=== PATIENT | female | born 1940 | race Caucasian/White ===

== ENCOUNTER 2021-01-24 17:53 | Inpatient (IN) | payer MEDICARE, BC ==
[~2021-01-24] VITALS: Ht 160 cm; Wt 49.9 kg
--- NOTE | 2021-01-24 18:20 | NUR ---
BIB FAMILY FOR PSYCH PLACEMENT. WORSENING PARANOIA. HX DEMENTIA. PATIENT A/OX1 WITH CONFUSION. ABLE TO FOLLOW COMMANDS. PATIENT ASSISTED TO BED.
--- NOTE | 2021-01-24 18:26 | NUR ---
PATIENT ABLE TO PROVIDE A URINE SAMPLE.
--- NOTE | 2021-01-24 18:28 | NUR ---
BED 218 A
[2021-01-24 18:36] LABS: BASOPHILS % (AUTO) 0.4 % (0.0-2.0); EOSINOPHILS % (AUTO) 0.5 % (0.0-6.0); HEMATOCRIT 37 % (33-45); LYMPHOCYTES # (AUTO) 1.2 /CMM (0.8-4.8); LYMPHOCYTES % (AUTO) 11.2 % (20.0-44.0); MEAN CORPUSCULAR HGB CONC 33 g/dl (31.0-36.0); MEAN CORPUSCULAR VOLUME 89 fL (82-100); MONOCYTES # (AUTO) 0.7 /CMM (0.1-1.30); MONOCYTES % (AUTO) 6.4 % (2.0-12.0); NEUTROPHILS # (AUTO) 8.5 /CMM (1.8-8.9); NEUTROPHILS % (AUTO) 81.5 % (43.0-81.0); PLATELET COUNT (AUTO) 214 /CMM (150-450); RED BLOOD CELL COUNT(AUTO) 4.12 MIL/uL (4.0-5.2); WHITE BLOOD COUNT (AUTO) 10.4 K/uL (4.3-11.0)
[2021-01-24 18:37] LABS: BILIRUBIN,URINE Negative (NEGATIVE); COLOR,URINE YELLOW (YELLOW); LEUKOCYTE ESTERASE ,URINE Small (NEGATIVE); NITRITE, URINE Negative (NEGATIVE); PH,URINE 6.5 (5.0-8.0); PROTEIN,URINE Negative (NEGATIVE); UGLUCOSE Negative (NEGATIVE); UROBILINOGEN,URINE 0.2 EU/dL (0.2)
[2021-01-24 18:49] LABS: BACTERIA,URINE Rare /HPF (None Seen); MUCUS,URINE Rare /LPF (None Seen); SQUAMOUS EPITHELIAL CELL,UR 0-2 /HPF (None Seen)
--- NOTE | 2021-01-24 18:53 | NUR ---
COVID SWAB SENT. FAMILY AT BEDSIDE.
[2021-01-24 18:59] LABS: ACETAMINOPHEN 3 ug/ml (10-30); ALANINE AMINOTRANSFERASE 15 U/L (12-78); ALBUMIN 4.1 g/dL (3.4-5.0); ALCOHOL, BLOOD < 3 mg/dL (0-0); ALKALINE PHOSPHATASE 59 U/L (46-116); ASPARTATE AMINOTRANSFERASE 20 U/L (15-37); BILIRUBIN,DIRECT 0.1 mg/dL (0.0-0.2); BILIRUBIN,TOTAL 0.6 mg/dL (0.2-1.0); CALCIUM, SERUM 9.3 mg/dL (8.5-10.1); CARBON DIOXIDE 25 mmol/L (21-32); CHLORIDE 98 mmol/L (98-107); GLUCOSE 96 mg/dL (74-106); POTASSIUM 3.6 mmol/L (3.5-5.1); SODIUM SERUM 134 mmol/L (136-145); TOTAL PROTEIN, SERUM 7.5 g/dL (6.4-8.2); UREA NITROGEN, BLOOD 21 mg/dL (7-18)
--- NOTE | 2021-01-24 19:16 | NUR ---
CALLED LAB TO F/U ABOUT COVID SWAB
--- NOTE | 2021-01-24 19:19 | NUR ---
CALLED KAHLIL. SHE WILL COME HERE TO EVALUATE AFTER GOING [place] [email or web address]
[2021-01-24] MEDS ORDERED: CEPHALEXIN MONOHYDRATE 500 MG CAPSULE PO ONE ×2 (19:30→19:32)
--- NOTE | 2021-01-24 19:38 | NUR ---
CALLED LAB REGARDING COVID SWAB, WAS RECIEVED. PENDING RESULT.
[2021-01-24 20:00] LABS: THYROID STIMULATING HORMONE 4.621 uIU/mL (0.358-3.74)
--- NOTE | 2021-01-24 20:05 | NUR ---
COMMUNICATION PROFESSOR AT BEDSIDE FOR EVAL.
--- NOTE | 2021-01-24 20:17 | NUR ---
per lab, covid positive
--- NOTE | 2021-01-24 20:20 | NUR ---
called lab for pcr covid swab
[2021-01-24] MEDS ORDERED: ASPI-1169 PO (20:26)
[2021-01-24] MEDS ORDERED: OMEP20TA20 PO (20:26)
[2021-01-24] MEDS ORDERED: ARIP2TAB3 PO (20:26)
[2021-01-24] MEDS ORDERED: LEVO50TA PO (20:26)
[2021-01-24] MEDS ORDERED: ESCI5TAB PO (20:26)
--- NOTE | 2021-01-24 20:27 | NUR ---
PER FAMILY PT HAD COVID VACCINE
--- NOTE | 2021-01-24 20:35 | NUR ---
PCR SWAB COLLECTED SEND TO LAB
--- NOTE | 2021-01-24 20:50 | NUR ---
PT COVID+, CALLED NURSING SUP FOR A ISO BED, COVID PCR SENT
--- NOTE | 2021-01-24 21:19 | NUR ---
REPORT GIVEN TO ARTEMIO FRANCOIS FOR TIFFANIE.
[2021-01-24 21:45] VITALS: BP 129/77
--- NOTE | 2021-01-24 21:45 | NUR ---
RN NOTE GPS ADMISSION NOTE: RECEIVED PATIENT FROM ER/HOME. PATIENT ARRIVED AT UNIT ON 01/24/2021 2145 VIA STRETCHER WITH 2 ER STAFF, WITH SON ( ROSEMARY LAM, PSYCHIATRIST, ) AND DAUGHTER. PATIENT ADMITTED ON A 5150 HOLD FOR WORSENING PARANOIA. THE PATIENT IS INCREASINGLY PARANOID ACCUSING HER OF KEEPING HER PRISONER AND HAS BEEN REFUSING MEDICATIONS FOR A MONTH, NO REGARD FOR SAFETY AND NO VIABLE PLAN FOR SELF CARE. THE 5150 WAS REVIEWED AND THE DOCUMENTATION IN THE 5150 HOLD APPEARS TO REFLECT THE PRESENTATION OF THE PATIENT. ON FACE TO FACE ASSESSMENT, THE PATIENT IS NOTED TO BE CONFUSED, HAS BEEN SAYING SHE WANTS TO GO HOME AND ASKING WHY SHE IS IN THE HOSPITAL, AND NEEDS REDIRECTION.THE PATIENT IS CURRENTLY LYING IN BED AWAKE, HAS NO S/S OR COMPLAINTS OF PAIN, NO S/S OF APPARENT DISTRESS, BREATHING IS UNLABORED WITH EQUAL RISE AND FALL OF THE CHEST. PATIENT IS AO X 2 ON ROOM AIR. PATIENT HAS NO NEEDS AT THIS TIME. PATIENT DENIES SUICIDAL AND/OR HOMICIDAL IDEATIONS AT THIS TIME. PATIENT ADVISED OF HER HOLD AND PATIENT RIGHTS BOOKLEY GIVEN. THE PATIENT IS UNDER THE PSYCHIATRIC CARE OF DR SCHWARTZ AND MEDICAL CARE OF DR YARBROUGH. PATIENT BELONGINGS WERE INVENTORIES AND CHECKED FOR CONTRABAND. PATIENT SKIN ASSESSMENT COMPLETED. PATIENT ORIENTATED TO ROOM, FLOOR, AND STAFF WITH ALLL QUESTIONS ANSWERED. PATIENT EDUCATED ON THE USE OF THE CALL GEORGE, SIDE RAILS ARE UP X 2 FOR SAFETY, BED IS LOCKED, AND LOW, AND WILL CONTINUE TO MONITOR THIS PATIENT Q15 MINUTES WITH THE HELP OF STAFF TO MAINTAIN SAFETY.
[2021-01-24] MEDS ORDERED: MAGNESIUM HYDROXIDE 30 ML UDC PO PRN (22:30)
[2021-01-24] MEDS ORDERED: MAG HYDROX/AL HYDROX/SIMETH 30 ML UDC PO PRN (22:30)
[2021-01-24] MEDS ORDERED: ONDANSETRON HCL 4 MG/5 ML SOLUTION PO ONE (22:30)
[2021-01-24] MEDS ORDERED: ACETAMINOPHEN 325 MG TABLET PO PRN (22:30)
[2021-01-24] MEDS ORDERED: BLOOD SUGAR DIAGNOSTIC 1 EACH STRIP IN ONE (22:30)
[2021-01-24] MEDS: LORAZEPAM 0.5 MG TABLET PO PRN (22:33)
[2021-01-25] MEDS: PANTOPRAZOLE 40 MG TABLET.DR PO SCH (08:38)
[2021-01-25] MEDS: ASPIRIN 81 MG TAB.CHEW PO SCH (08:38)
[2021-01-25] MEDS: LEVOTHYROXINE SODIUM 50 MCG TABLET PO SCH (08:38)
[2021-01-25 09:50] VITALS: BP 178/68
--- NOTE | 2021-01-25 10:59 | NUR ---
wide awake ,alert, appropriate. Knows she is in the hospital but did not know why there is a sitter around her. the patient was explained, her status right now 51/50, and awaiting the psy eval. appetite for breakfast, 75%, independent seen by PT, able to walk, in light of her PCR pending, did not ambulate in the hallway. Sitting in chair, dozing off intermittently. Son called , her condition updated.
[2021-01-25 14:59] VITALS: BP 125/72
[2021-01-25] MEDS: ESCITALOPRAM OXALATE (10 MG) 10 MG TABLET PO SCH (16:18)
[2021-01-25] MEDS: ARIPIPRAZOLE 2 MG TABLET PO SCH (16:18)
[2021-01-25 16:20] VITALS: BP 137/64
--- NOTE | 2021-01-25 16:22 | NUR ---
psychiatrist came in, and new orders written. just now woke self up, and took all po meds, Abilify, and Lexapro for now, appropriate and compliant with care
--- NOTE | 2021-01-25 19:00 | NUR ---
GPS OVERFLOW RN NOTE RECEIVED PATIENT AWAKE AND IN BED, SITTER AT BEDSIDE, NO S/S OR COMPLAINTS OF PAIN AT THIS TIME. PATIENT IS DISPLAYING NO S/S OF APPARENT DISTRESS AT THIS TIME. BREATHING IS EVEN AND UNLABORED WITH EQUAL RISE AND FALL OF THE CHEST. PATIENT IS AO X 2, ON ROOM AIR WITH SPO2 96%. PATIENT IS COMPLIANT WITH MEDICATION, RESPONDING TO INTERNAL STIMULI, AND COOPERATIVE. PATIENT DENIES SUICIDAL AND HOMICIDAL ISEATIONS AT THIS TIME. PATIENT IS AMBULATORY AND ASSISTED BY SITTER WITH TOILETING. EDUCATED PATIENT ON THE USE OF THE CALL LIGHT. PATIENT SIDE RAILS UP X 2 FOR SAFETY, BED IS LOCKED AND LOW. WILL CONTINUE TO MONITOR Q15 MIN WITH THE HELP OF SITTER TO MAINTAIN SAFETY.
[2021-01-25 20:00] VITALS: BP 133/92
[2021-01-25] MEDS: MIRTAZAPINE 15 MG TABLET PO SCH (21:01)
[2021-01-26 04:00] VITALS: BP 133/62
[2021-01-26 06:08] LABS: BASOPHILS % (AUTO) 0.5 % (0.0-2.0); EOSINOPHILS % (AUTO) 2.8 % (0.0-6.0); HEMATOCRIT 39 % (33-45); HEMOGLOBIN 12.8 g/dL (11.5-14.8); LYMPHOCYTES # (AUTO) 1.2 /CMM (0.8-4.8); LYMPHOCYTES % (AUTO) 13.8 % (20.0-44.0); MEAN CORPUSCULAR HGB CONC 33 g/dl (31.0-36.0); MEAN CORPUSCULAR VOLUME 89 fL (82-100); MONOCYTES # (AUTO) 0.6 /CMM (0.1-1.30); MONOCYTES % (AUTO) 6.8 % (2.0-12.0); NEUTROPHILS # (AUTO) 6.6 /CMM (1.8-8.9); NEUTROPHILS % (AUTO) 76.1 % (43.0-81.0); PLATELET COUNT (AUTO) 200 /CMM (150-450); RED BLOOD CELL COUNT(AUTO) 4.37 MIL/uL (4.0-5.2); WHITE BLOOD COUNT (AUTO) 8.7 K/uL (4.3-11.0)
[2021-01-26 06:32] LABS: CALCIUM, SERUM 9.1 mg/dL (8.5-10.1); POTASSIUM 3.4 mmol/L (3.5-5.1)
--- NOTE | 2021-01-26 07:05 | NUR ---
GPS OVERFLOW RN NOTES RECEIVED PT IN BED, AWAKE. A/O X1-2. SITTER AT BEDSIDE. STABLE ON ROOM AIR, SPO2 98%. NO COMPLAINTS OF PAIN AT THIS TIME. COOPERATIVE AND COMPLIANT WITH MEDICATION. DENIES SUICIDAL AND HOMICIDAL IDEATIONS AT THIS TIME. AMBULATORY WITH ASSIST BY SITTER. SAFETY MEASURES IN PLACE. CALL LIGHT WITHIN REACH. BED LOCKED AND IN LOWEST POSITION WITH SIDE RAILS UP X2. WILL CONTINUE TO MONITOR.
[2021-01-26] MEDS: ASPIRIN 81 MG TAB.CHEW PO SCH (08:22)
[2021-01-26] MEDS: PANTOPRAZOLE 40 MG TABLET.DR PO SCH (08:22)
[2021-01-26] MEDS: ESCITALOPRAM OXALATE (10 MG) 10 MG TABLET PO SCH (08:23)
[2021-01-26] MEDS: LEVOTHYROXINE SODIUM 50 MCG TABLET PO SCH (08:23)
[2021-01-26] MEDS ORDERED: POTASSIUM CHLORIDE 20 MEQ TAB.PRT.SR PO SCH (12:00)
[2021-01-26] MEDS: ARIPIPRAZOLE 2 MG TABLET PO SCH (16:52)
--- NOTE | 2021-01-26 18:33 | NUR ---
GPS OVERFLOW RN NOTES NO SIGNIFICANT CHANGES THROUGHOUT THE SHIFT. PT RESTING IN BED, AWAKE. A/O X1-2. SITTER AT BEDSIDE. STABLE ON ROOM AIR, SPO2 98%. NO COMPLAINTS OF PAIN AT THIS TIME. COOPERATIVE. DENIES SUICIDAL AND HOMICIDAL IDEATIONS AT THIS TIME. AMBULATORY WITH ASSIST BY SITTER. ALL DUE MEDS GIVEN. NEEDS ATTENDED. KEPT CLEAN AND DRY. SAFETY MEASURES STILL IN PLACE. CALL LIGHT WITHIN REACH. BED LOCKED AND IN LOWEST POSITION WITH SIDE RAILS UP X2. WILL ENDORSE TO NIGHT RN FOR TIFFANIE.
[2021-01-26 20:00] VITALS: BP 154/79
--- NOTE | 2021-01-26 20:15 | NUR ---
RN OPENING NOTES GPS OVERFLOW RECD PT IN BED. PT IS A/O X2. CONFUSED, FORGETFUL. PT COOPERATIVE AND RESPONDS TO REORIENTATION. PT DENIES SUICIDAL AND/OR HOMICIDAL IDEATIONS AT THIS TIME. PT IS ON ROOM AIR NO S/S OF SOB, NO DISTRESS NOTED. PT DENIES PAIN. ALL NEEDS ATTENDED. APPLICABLE ISOLATION PRECAUTIONS IN PLACE. SAFETY MEASURES IN PLACE. HOB ELEVATED SIDE RAILS UP X2 BED LOCKED IN LOWEST POSITION BED ALARM TUBULAR RIVETER LIGHT WITHIN REACH WILL CONT TO MONITOR CLOSELY THROUGHOUT SHIFT, AND MAINTAIN SAFETY.
[2021-01-26] MEDS: MIRTAZAPINE 15 MG TABLET PO SCH (20:48)
[2021-01-26] MEDS: LORAZEPAM 0.5 MG TABLET PO PRN ×2 (23:22→23:37)
[2021-01-26] MEDS: TEMAZEPAM 7.5 MG CAPSULE PO PRN (23:36)
--- NOTE | 2021-01-27 | NUR ---
RN NOTE PT IS GETTING AGITATED, REFUSES TO STAY IN BED. IS HAVING PARANOID DELUSIONS, BELIEVES PEOPLE WANT TO HURT HER/KILL HER. PT ATTEMPTING TO LEAVE, ATTEMPTED TO EXIT VIA THE WINDOW IN HER ROOM.PT IS NOT RESPONSIVE TO REORIENTATION TO HOSPITAL. PT REFUSES TO BELIEVE SHE IS IN HOSPITAL. VERBALIZE SHE WANTS TO GO HOME, PT IS ON 5150 HOLD. ADMINISTERED PRN ATIVAN AND RESTORIL ORDERED. NOTIFIED SON BIIB OF SITUATION. CONTINUOUS MONITORING IN PLACE.
--- NOTE | 2021-01-27 00:15 | NUR ---
RN NOTE PT REFUSING MIDNIGHT VITALS, PT CURRENTLY SITTING IN CHAIR. LESS AGITATED THAN BEFORE. EXPLAINED IMPORTANCE, RISKS AND BENEFITS X2, PT STILL REFUSED. WILL CONT TO MONITOR CLOSELY FOR CHANGE OF CONDITION.
--- NOTE | 2021-01-27 00:32 | NUR ---
RN NOTE PT CURRENTLY IN BED, RESTING INTERMITTENTLY SLEEPING. NO S/S OF DISTRESS NOTED. WILL CONT TO MONITOR CLOSELY.
--- NOTE | 2021-01-27 01:07 | NUR ---
RN NOTE SON BIBI PHONE NUMBER ALTERNATIVE PHONE NUMBER [phone]
[2021-01-27 04:00] VITALS: BP 149/71
--- NOTE | 2021-01-27 07:08 | NUR ---
RN CLOSING NOTES ALL NEEDS ATTENDED. NO SIGNIFICANT CHANGES. PT STILL ON ROOM AIR NO DISTRESS NOTED NO SOB. ON TELE MONITOR, PRESENTS WITH HR 115. BED BATH DONE, NOURISHMENT PROVIDED. STILL REMAINS ON RESTRAINTS. ALL SAFETY MEASURES IN PLACE. ALL DUE MEDS GIVEN. HOB ELEVATED SIDE RAILS UP X2 BED LOCKED IN LOWEST POSITION BED ALARM ON WILL ENDORSE TO DAY SHIFT FOR CONTINUATION OF CARE.
--- NOTE | 2021-01-27 07:30 | NUR ---
RN OPENING NOTES- GPS OVERFLOW PT SITTING UP IN CHAIR, A/O x 1. CONFUSED AND FORGETFUL. PT IS COOPERATIVE AND RESPONDS TO REORIENTATION. PT DENIES SUICIDAL AND/OR HOMICIDAL IDEATIONS AT THIS TIME. PT BREATHING ON ROOM AIR WITH NO S/S OF SOB OR RESP DISTRESS NOTED. PT DENIES PAIN. ALL NEEDS ATTENDED TO. PT CURRENTLY COVID PCR PENDING, APPROPRIATE ISO MEASURES IN PLACE. ALL SAFETY MEASURES IN PLACE. WORK STATION BESIDE PT ROOM FOR CLOSE MONITORING
[2021-01-27 08:00] VITALS: BP 89/55
[2021-01-27] MEDS: PANTOPRAZOLE 40 MG TABLET.DR PO SCH (09:02)
[2021-01-27] MEDS: ASPIRIN 81 MG TAB.CHEW PO SCH (09:02)
[2021-01-27] MEDS: ESCITALOPRAM OXALATE (10 MG) 10 MG TABLET PO SCH (09:02)
[2021-01-27] MEDS: LEVOTHYROXINE SODIUM 50 MCG TABLET PO SCH (09:02)
--- NOTE | 2021-01-27 09:30 | NUR ---
RN NOTE PT TRANSFERRED TO GPS FOR FURTHER EVALUATION VIA WHEELCHAIR IN STABLE CONDITION. ALL PT BELONGINGS WITH PT. PT REPORT GIVEN TO JENNIFER FRANCOIS TIFFANIE
--- NOTE | 2021-01-27 10:02 | NUR ---
GPS RN NOTES RECEIVED TRANSFER FROM [facility]. PATIENT MEDICALLY STABLE. BP ELEVATED AT 181/79 HR 66 WILL RECHECK IN 30 MIN. PER MEEN[facility] NURSE PATIENT WAS HYPOTENSIVE 89/56
--- NOTE | 2021-01-27 10:48 | NUR ---
GPS RN NOTES RECHECKED BP. BP GOING DOWN 150/61 HR 66 WILL CONTINUE TO MONITOR PATIENT.
--- NOTE | 2021-01-27 14:33 | NUR ---
Initial Discharge plan: The pt. lives at home [[address] [facility] [address]; [phone]] with . Pt. stated she would like to return there once ready for discharge. SW has been unsuccessful at reaching her son, Alfred Oconnor [phone] to discuss D/C plan. MELVIN will continue to collaborate with IDT to ensure safe & appropriate D/C plan.
--- NOTE | 2021-01-27 14:33 | NUR ---
Point of Contact: MELVIN called the pt.s son, Alfred Oconnor [phone] to gather collateral information. Call went to [employer] and MELVIN left call back number.
[2021-01-27 15:54] VITALS: BP 161/85
--- NOTE | 2021-01-27 16:17 | NUR ---
GPS RN NOTES PER PHYS THER PATIENT WITH BP OF 161/[address] CASTILLO NOTIFIED. PER MD ORDER PRN CLONIDINE 0.1 Q6HRS SBP >150 RE-CHECKED PATIENTS BP MYSELF. ASKED PATIENT NOT TO MOVE OR TALK. BP 148/71 HR 74 WILL CONTINUE TO MONITOR
[2021-01-27] MEDS: ARIPIPRAZOLE 2 MG TABLET PO SCH (16:31)
[2021-01-27] MEDS: CLONIDINE HCL 0.1 MG TABLET PO PRN (17:35)
--- NOTE | 2021-01-27 17:40 | NUR ---
GPS RN NOTES PATIENT WITH BP OF 166/85 PRN CATAPRES ADMINISTERED PER MD ORDER FOR SBP >150 WILL CONTINUE TO MONITOR
[2021-01-27] MEDS: RIVASTIGMINE TARTRATE 1.5 MG CAPSULE PO SCH (18:27)
[2021-01-27 20:00] VITALS: BP 139/59
--- NOTE | 2021-01-27 21:30 | NUR ---
OMNICELL SYSTEM IS DOWN, UNABLE TO PULL OUT MEDICATIONS. CHAIN OF COMMAND INITIATED. NURSING DRAWER HARDWARE WORKER NOTIFIED. OMNICELL 24HOUR HELP DESK NOTIFIED, AWAITING DISPATCH TARE WEIGHER.
[2021-01-27] MEDS: MIRTAZAPINE 15 MG TABLET PO SCH (23:54)
--- NOTE | 2021-01-28 00:35 | NUR ---
pharmacy, [facility] notified regarding lack of access for medications, all medications given
[2021-01-28 08:00] VITALS: BP 126/64
[2021-01-28] MEDS: ESCITALOPRAM OXALATE (10 MG) 10 MG TABLET PO SCH (09:00)
[2021-01-28] MEDS: RIVASTIGMINE TARTRATE 1.5 MG CAPSULE PO SCH ×2 (09:00→17:00)
[2021-01-28] MEDS: ASPIRIN 81 MG TAB.CHEW PO SCH (09:00)
[2021-01-28] MEDS: PANTOPRAZOLE 40 MG TABLET.DR PO SCH (09:01)
[2021-01-28] MEDS: LEVOTHYROXINE SODIUM 50 MCG TABLET PO SCH (09:01)
--- NOTE | 2021-01-28 11:13 | NUR ---
Point of Contact: MELVIN called the pts son, Alfred Oconnor ([phone]), and left a voicemail stating that she is aware that the pt can return to the home and will work on arranging home health.
--- NOTE | 2021-01-28 11:22 | NUR ---
SS Note: MELVIN received call back from pt.'s son, Alfred Oconnor [phone]. Per Alfred, he is agreeable to pt. discharging back home [[address] [facility] [address]; [phone]] with if pt. is back to baseline and not exhibiting severe paranoia and aggression. Noted. MELVIN provided MELVIN Thompson's contact number as she will follow up with D/c PLANNING. MELVIN relayed D/C plan to Donna CHARLES. SS to continue collaborating with IDT to ensure safe & appropriate D/C plan.
[2021-01-28] MEDS: LORAZEPAM 0.5 MG TABLET PO PRN (16:03)
--- NOTE | 2021-01-28 16:03 | NUR ---
attempted ativan as very paranoid,pt. refused,call out to pt's son,states to call him back in one hr.pt. not happy.
[2021-01-28] MEDS: ARIPIPRAZOLE 2 MG TABLET PO SCH (17:00)
--- NOTE | 2021-01-28 18:00 | NUR ---
REFUSED KEELEY. MEDS VERY PARANOID.
[2021-01-28 20:00] VITALS: BP 159/81
[2021-01-28] MEDS: MIRTAZAPINE 15 MG TABLET PO SCH (21:00)
[2021-01-28] MEDS: CLONIDINE HCL 0.1 MG TABLET PO PRN (22:01)
--- NOTE | 2021-01-28 22:02 | NUR ---
Resident B/P 159/81 pulse 86. Patient refused PRN.PO medication catapres. Educated on risk of not taking medication.Offered 3 times.Refused.
--- NOTE | 2021-01-28 22:40 | NUR ---
Recieved call from pharmacy regarding Consent form needed for Abilify 2mg. Will endorse to day shift to obtain. Dosage due at 1700.
[2021-01-29] MEDS: PANTOPRAZOLE 40 MG TABLET.DR PO SCH (07:30)
[2021-01-29 08:00] VITALS: BP 164/69
[2021-01-29] MEDS: LEVOTHYROXINE SODIUM 50 MCG TABLET PO SCH (09:00)
[2021-01-29] MEDS: ESCITALOPRAM OXALATE (10 MG) 10 MG TABLET PO SCH (09:00)
[2021-01-29] MEDS: ASPIRIN 81 MG TAB.CHEW PO SCH (09:00)
[2021-01-29] MEDS: RIVASTIGMINE TARTRATE 1.5 MG CAPSULE PO SCH ×2 (09:00→17:05)
--- NOTE | 2021-01-29 10:30 | NUR ---
Point of Contact: MELVIN called the pts son, Alfred Oconnor ([phone]), and left a voicemail stating that the SW heard his message about needing a caregiver for his mother for when she is discharged. MELVIN stated that she will gladly assist.
[2021-01-29] MEDS: ARIPIPRAZOLE 2 MG TABLET PO SCH ×4 (11:00→19:49)
[2021-01-29 16:00] VITALS: BP 168/99
[2021-01-29] MEDS: CLONIDINE HCL 0.1 MG TABLET PO PRN (17:06)
[2021-01-29] MEDS: TEMAZEPAM 7.5 MG CAPSULE PO PRN (22:17)
[2021-01-30 08:00] VITALS: BP 146/74
[2021-01-30] MEDS: PANTOPRAZOLE 40 MG TABLET.DR PO SCH (08:20)
--- NOTE | 2021-01-30 08:20 | NUR ---
RN-CO: MEDS WAS NOT ABLE TO SCAN , 3 SCANNERS ARE NOT WORKING.
[2021-01-30] MEDS: ASPIRIN 81 MG TAB.CHEW PO SCH (08:23)
[2021-01-30] MEDS: LEVOTHYROXINE SODIUM 50 MCG TABLET PO SCH (08:23)
--- NOTE | 2021-01-30 13:35 | NUR ---
Point of Contact: MELVIN called the pts son, Alfred Oconnor ([phone]), and left a voicemail stating that she received his message and that the pt is now compliant with her abilify but there is still no discharge date.
[2021-01-30 16:00] VITALS: BP 134/87
[2021-01-30] MEDS: ARIPIPRAZOLE 2 MG TABLET PO SCH (18:20)
--- NOTE | 2021-01-30 19:30 | NUR ---
GPS RN NOTE, RECEIVED PATIENT AWAKE AND IN BED, NO S/S OR COMPLAINTS OF PAIN AT THIS TIME. PATIENT IS DISPLAYING NO S/S OF APPARENT DISTRESS AT THIS TIME. PATIENT BREATHING IS UNLABORED WITH EQUAL RISE AND FALL OF THE CHEST. PATIENT IS ALERT AND ORIENTED X 1 ON ROOM AIR WITH A SPO2 98%. PATIENT IS COMPLIANT WITH MEDICATIONS, ANXIOUS AT TIMES, TEARFUL, AND IS COOPERATIVE. PATIENT DENIES SUICIDAL AND HOMICIDAL IDEATIONS AT THIS TIME. PATIENT ASSISTED WITH TURNING AND REPOSITIONING Q2HR AND PRN FOR COMFORT AND CIRCULATION. PATIENT HAS NO NEEDS AT THIS TIME. PATIENT EDUCATED ON THE USE OF THE CALL LIGHT. PATIENT BED SIDE RAILS UP X 2 FOR SAFETY. PATIENT BED IS LOCKED, LOW, WITH BED ALARM ON. WILL CONTINUE TO MONITOR THIS PATIENT Q15 MINUTES WITH THE HELP OF STAFF TO MAINTAIN SAFETY.
[2021-01-30 19:41] VITALS: BP 161/72
[2021-01-30] MEDS ORDERED: MIRTAZAPINE 15 MG TABLET PO SCH (21:00)
[2021-01-31] MEDS: TEMAZEPAM 7.5 MG CAPSULE PO PRN (01:23)
--- NOTE | 2021-01-31 01:23 | NUR ---
GPS RN NOTE, PATIENT HAS A COMPLAINT OF NOT BEING ABLE TO SLEEP. PATIENT VITAL SIGNS ARE STABLE. GAVE RESTORIL 7.5MG PO HS PRN ORDERED. WILL REASSESS FOR INSOMNIA AND I WILL CONTINUE TO MONITOR THIS PATIENT WITH THE HELP OF STAFF.
[2021-01-31 08:00] VITALS: BP 151/86
[2021-01-31] MEDS: ASPIRIN 81 MG TAB.CHEW PO SCH (08:57)
[2021-01-31] MEDS: LEVOTHYROXINE SODIUM 50 MCG TABLET PO SCH (08:57)
--- NOTE | 2021-01-31 11:42 | NUR ---
Probable Cause Hearing: Pts 5250 hold was upheld for grave disability.
[2021-01-31 16:00] VITALS: BP 157/77
--- NOTE | 2021-01-31 17:16 | NUR ---
GPS/RN PT HAD THE PANIC ATTACK AT MRI. WILL TRY THE OTHER TIME. DR TODD MADE AWARE. PT'S SON NOTIFIED WELL
[2021-01-31] MEDS: ARIPIPRAZOLE 2 MG TABLET PO SCH (18:25)
[2021-01-31 20:38] VITALS: BP 157/68
[2021-02-01] MEDS: ASPIRIN 81 MG TAB.CHEW PO SCH (09:32)
[2021-02-01] MEDS: LEVOTHYROXINE SODIUM 50 MCG TABLET PO SCH (09:32)
[2021-02-01] MEDS ORDERED: LISINOPRIL (5MG) 5 MG TABLET PO SCH (10:30)
[2021-02-01 12:26] VITALS: BP 151/90
[2021-02-01 16:00] VITALS: BP 135/75
[2021-02-01] MEDS: ARIPIPRAZOLE 2 MG TABLET PO SCH ×2 (17:48→18:59)
--- NOTE | 2021-02-01 17:48 | NUR ---
RELUCTANT TO TAKE ABILIFY,STATES SHE IS BETTER NOW,SON ON HIS WAY UP TO DISCUSS WITH HIM.
--- NOTE | 2021-02-01 18:19 | NUR ---
FAMILY IN TO VISIT.
[2021-02-01] MEDS ORDERED: ARIPIPRAZOLE 5 MG TABLET PO SCH (19:00)
--- NOTE | 2021-02-01 19:30 | NUR ---
RN OPENING NOTE PATIENT A/O X 2. SON BIBI AND DAUGHTER SHEELA WALKING AROUND THE PATIENT IN THE UNIT. PATIENT IS CALM AND COOPERATIVE. PATIENT IS CURRENTLY ON A 5250 HOLD. BREATHING EVEN AND UNLABORED, NO SIGNS OF RESPIRATORY DISTRESS. SAFETY MEASURES IN PLACE AND DISCUSSED. BED IN LOCKED AND LOWEST POSITION, SIDE RAILS UP, ENCOURAGED PATIENT TO CALL BEFORE GETTING UP. WILL MONITOR PATIENT CLOSELY.
[2021-02-01 20:17] VITALS: BP 139/69
[2021-02-01 21:10] VITALS: BP 110/59
--- NOTE | 2021-02-01 22:00 | NUR ---
OFFICE SERVICES SPECIALIST NOTE 2109: BALBINA JOYCE CALLED ME TO THE DAY/ACTIVITY ROOM AND STATES THAT PATIENT IS NOT RESPONDING. PATIENT WAS LETHARGIC AND ONLY RESPONDS TO STERNAL RUB. LOT ATTENDANT CALLED: GUI NURSING SUPERVISOR RESIDENTIAL, MARILEE RT, LAMAR RT, ED TIRE MANAGER PRESENT ALONG WITH GPS STAFF REGGIE CHARGE NURSE, THUAN RN, ARLETTE RN, JENNIFER JOYCE, BALBINA JOYCE. PATENT WAS TRANSFERRED TO HER BED, VITALS WERE: 110/59, HR 97, RR 15, TEMP 97.8, O2 SAT 99%, AND BLOOD SUGAR 97 MG/DL. UPON TRANSFERRING TO THE BED, PATIENT BECAME RESPONSIVE, STATES THAT SHE "FEELS SLEEPY". PATIENT WAS GIVEN HALF A CUP OF APPLE JUICE. NO ITEMS OR MEDICATIONS GIVEN TO THE PATIENT FROM THE CRASH CART. CRASH CART NOT OPENED. DR. NGO NOTIFIED, CALLED BACK AND ORDERED TO TRANSFER PATIENT TO TELEMETRY, ORDERED AN ECHO, AND CT OF HEAD W/O CONTRAST. ORDERS READ BACK AND CARRIED OUT. PATIENT BROUGHT DOWN TO CT THEN PATIENT TRANSFERRED TO [place] [id number] UNDER ACLS PROTOCOL. UPON TRANSFER, PATIENT AMBULATORY, A/O X 2, AWAKE, ABLE TO MAKE NEEDS KNOWN.
--- NOTE | 2021-02-01 22:05 | NUR ---
PRESTIDIGITATOR PATIENT TRANSFERRED WITH ALL HER BELONGINGS AND ORIGINAL 5250 HOLD AND OTHER DOCUMENTS.
--- NOTE | 2021-02-01 22:45 | NUR ---
CALLED [facility] AND LEFT A MESSAGE REGARDING THE PATIENT'S TRANSFER TO MS/TELE UNIT.
--- NOTE | 2021-02-01 23:45 | NUR ---
SON BIBI CALLED BACK, AND DISCUSSED PATIENT'S STATUS AT THIS TIME AND WHAT THE SITUATION WAS. INFORMED HIM ON HOW TO REACH THE MS/TELE UNIT TO GET UPDATES AND THE NURSE THAT TOOK OVER THE CARE OF THE PATIENT.
[2021-02-02] MEDS ORDERED: ARIPIPRAZOLE 5 MG TABLET PO SCH (19:00)
== END 2021-02-01 22:25 | disposition short-term general hospital (02) | DRG 885 ==
LOC: ER 18:01 → GPS 20:03 → GPSOV1 21:06 → GPS 01-27 09:42
PROVIDERS: ADMIT Psychiatry & Neurology Psychosomatic Medicine; ATTEND Nurse Practitioner Family
DX: F25.1 Schizoaffective disorder, depressive type (principal); U07.1 COVID-19; N39.0 Urinary tract infection, site not specified; E03.9 Hypothyroidism, unspecified; F03.90 Unspecified dementia, unspecified severity, without behavioral disturbance, psychotic disturbance, mood disturbance, and anxiety; Z91.81 History of falling; Z95.0 Presence of cardiac pacemaker; K21.9 Gastro-esophageal reflux disease without esophagitis; Z79.82 Long term (current) use of aspirin; Z79.899 Other long term (current) drug therapy; Z73.6 Limitation of activities due to disability; R53.1 Weakness; R27.8 Other lack of coordination; F41.9 Anxiety disorder, unspecified
CPT/HCPCS: 36415; 70450-TC; 80048-TC; 80061-TC; 80076-TC; 81001; 83880; 84439-TC; 84443-TC; 85025-TC; 87081-TC; 87086-TC; 93307-TC; 97116-TC; 97530-TC; G0480; Q0162; U0003

== ENCOUNTER 2021-02-01 22:36 | Inpatient (IN) | payer MEDICARE, BC ==
[~2021-02-01] VITALS: Ht 165.1 cm; Wt 50.3 kg
--- NOTE | 2021-02-01 22:00 | NUR ---
RN NOTES RECEIVED PATIENT FROM GPS, S/P RAPID RESPONSE, A/OX2-, SR ON TELE MONITOR HR-85, SKIN ASSESSMENT DONE,SITTER AT BEDSIDE, NO PAIN NOTED, NO SOB, SIDERAILSUPX2, BED IN LOCKED POSITION, WILL CONTINUE TO MONITOR
--- NOTE | 2021-02-01 22:30 | NUR ---
RN NOTES PAGED DR NGO REGARDING PATIENT'S ADMISSION ORDER, WAITING TO CALL BACK
[~2021-02-01 22:36] MED LIST: ARIP2TAB3 PO; ASPI-1169 PO; ESCI5TAB PO; LEVO50TA PO; OMEP20TA20 PO
[2021-02-01 23:30] VITALS: BP 131/72
--- NOTE | 2021-02-02 01:00 | NUR ---
RN NOTES PAGED DR. NGO AGAIN FOR ADMISSION ORDER, WAITING FOR HER TO CALL BACK
[2021-02-02 01:22] VITALS: BP 131/72
[2021-02-02] MEDS ORDERED: IV 1/2NS 1000 ML 1,000 ML IV PRN (03:30)
--- NOTE | 2021-02-02 03:30 | NUR ---
RN NOTES DR. COUGHLIN CALL BACK AND GAVE AN ORDER OF 1/2 NS @ 80ML/HR, ORDER NOTED AND CARRIED OUT
[2021-02-02 04:00] VITALS: BP 113/58
[2021-02-02] MEDS ORDERED: MAGNESIUM HYDROXIDE 30 ML UDC PO PRN (04:00)
[2021-02-02] MEDS ORDERED: MAG HYDROX/AL HYDROX/SIMETH 30 ML UDC PO PRN (04:00)
[2021-02-02] MEDS ORDERED: Z GUARD REMEDY 2 OZ OINT TP PRN (04:00)
[2021-02-02] MEDS ORDERED: ACETAMINOPHEN 325 MG TABLET PO PRN (04:00)
[2021-02-02] MEDS ORDERED: ONDANSETRON HCL/PF 4 MG/2 ML VIAL IVP PRN (04:00)
--- NOTE | 2021-02-02 06:17 | NUR ---
RN NOTES PATIENT AWAKE, MORNING CARE RENDERED, , NOT IN DISTRESS, NO PAIN NOTED, CALL LIGHT WITHIN REACH, SIDERAILSUPX2, PT. NEEDS ATTENDED
--- NOTE | 2021-02-02 06:25 | NUR ---
RN CLOSING NOTE PT AWAKE IN BED COMFORTABLY AT THIS TIME,PT REMAINED STABLE THROUGHOUT SHIFT. ALL NEEDS, MEDICATIONS, AND CARE ADMINISTERED ANTICIPATED PER ORDER; PT ENCOURAGED TO REPOSITION Q2H AND PRN, 1/2 NS @ 80ML/HR RUNNING ON RWRIST G# 20. SAFETY PRECAUTIONS IN PLACE AND MAINTAINED AT ALL TIMES. SITTER AT BEDSIDE. BED IN LOWEST POSITION, HOB ELEVATED, SIDE RAILS UP X2. CALL LIGHT AND TABLE WITHIN REACH. WILL ENDORSE TO DAY SHIFT NURSE FOR TIFFANIE.
--- NOTE | 2021-02-02 07:23 | NUR ---
SALESPERSON CHILDREN'S SHOES OPENING NOTES RECEIVED PATIENT AWAKE IN BED IN NO ACUTE SIGNS OF DISTRESS. 1:1 SITTER AT BEDSIDE. A/O X1 TO NAME ONLY. VERBALLY RESPONSIVE AND CONFUSED. NO S/S OF PAIN OR ANY DISCOMFORTS OBSERVED AT THIS TIME. PT ON TELEMONITORING WITH CURRENT READING OF NSR, HR ON THE 80'S, NO C/O CARDIAC DISTRESS VOICED AT THIS TIME. IV ACCESS ON RIGHT WRIST #22G INTACT AND PATENT, IVF OF 1/2 NS @ 80ML/HR IN FUSING WELL, NO S/S OF INFILTRATION AT SITE NOTED. FALL AND SAFETY PRECAUTIONS MAINTAINED: BED IN LOWEST LOCKED POSITION, SIDE-RAILS UP X2 AND CALL LIGHT W/IN REACH. WILL CONTINUE TO MONITOR PATIENT.
[2021-02-02 08:00] VITALS: BP 132/68
[2021-02-02 08:15] LABS: BASOPHILS % (AUTO) 0.6 % (0.0-2.0); EOSINOPHILS % (AUTO) 6.5 % (0.0-6.0); HEMATOCRIT 33 % (33-45); HEMOGLOBIN 10.9 g/dL (11.5-14.8); LYMPHOCYTES # (AUTO) 1.6 K/uL (0.8-4.8); MEAN CORPUSCULAR HGB CONC 33 g/dl (31.0-36.0); MEAN CORPUSCULAR VOLUME 89 fL (82-100); MONOCYTES # (AUTO) 0.7 K/uL (0.1-1.30); MONOCYTES % (AUTO) 11.1 % (2.0-12.0); NEUTROPHILS # (AUTO) 3.7 K/uL (1.8-8.9); NEUTROPHILS % (AUTO) 57.8 % (43.0-81.0); PLATELET COUNT (AUTO) 206 K/uL (150-450); RED BLOOD CELL COUNT(AUTO) 3.72 MIL/uL (4.0-5.2); WHITE BLOOD COUNT (AUTO) 6.5 K/uL (4.3-11.0)
[2021-02-02 08:38] LABS: CALCIUM, SERUM 9.3 mg/dL (8.5-10.1); CARBON DIOXIDE 26 mmol/L (21-32); CHLORIDE 107 mmol/L (98-107); CREATININE 0.7 mg/dL (0.6-1.3); GLUCOSE 100 mg/dL (74-106); POTASSIUM 3.8 mmol/L (3.5-5.1); SODIUM SERUM 143 mmol/L (136-145); UREA NITROGEN, BLOOD 21 mg/dL (7-18)
[2021-02-02 08:51] LABS: ALANINE AMINOTRANSFERASE 20 U/L (12-78); ALBUMIN 3.4 g/dL (3.4-5.0); ALKALINE PHOSPHATASE 45 U/L (46-116); ASPARTATE AMINOTRANSFERASE 21 U/L (15-37); BILIRUBIN,TOTAL 0.4 mg/dL (0.2-1.0); TOTAL PROTEIN, SERUM 6.5 g/dL (6.4-8.2)
[2021-02-02] MEDS ORDERED: ASPIRIN 81 MG TAB.CHEW PO SCH (09:00)
[2021-02-02] MEDS ORDERED: LEVOTHYROXINE SODIUM 50 MCG TABLET PO SCH (09:00)
--- NOTE | 2021-02-02 10:25 | NUR ---
RN NOTES PATIENT SEEN BY DR SCHWARTZ THIS MORNING WITH ORDER TO GIVE PT ENSURE ONCE A DAY.
[2021-02-02] MEDS ORDERED: PANTOPRAZOLE 40 MG TABLET.DR PO SCH (11:03)
[2021-02-02 11:35] VITALS: BP_SYST 139; BP_SYST 143; BP_SYST 147; BP_DIAS 64; BP_DIAS 67
[2021-02-02 11:58] LABS: MAGNESIUM 2.5 mg/dL (1.8-2.4); PHOSPHORUS 3.9 mg/dL (2.5-4.9)
[2021-02-02 12:00] VITALS: BP 136/71
[2021-02-02 12:12] LABS: THYROID STIMULATING HORMONE 4.623 uIU/mL (0.358-3.74)
[2021-02-02] MEDS ORDERED: ENSURE ENLIVE 237 ML LIQUID (VANILLA) PO SCH (15:00)
--- NOTE | 2021-02-02 15:14 | NUR ---
RN NOTES U/S TECH CAME TO DO BLE VENOUS DUPLEX TO R/O DVT BUT PT REFUSED DESPITE EXPLAINING IMPORTANCE OF PROCEDURE. DR HALEY MADE AWARE WITH ORDER TO CANCEL ORDER.
--- NOTE | 2021-02-02 15:24 | NUR ---
RN NOTES PT REMOVED LEADS OF TELEMONITOR AND REFUSING TO HAVE IT ON DESPITE EXPLAINING RISKS AND BENEFITS OF HAVING IT ON. PT WITH NO C/O CARDIAC DISTRESS VOICED. WILL CONTINUE TO MONITOR.
[2021-02-02 16:00] VITALS: BP 138/76
[2021-02-02] MEDS ORDERED: ARIPIPRAZOLE 5 MG TABLET PO SCH (17:00)
--- NOTE | 2021-02-02 19:03 | NUR ---
RETAIL PHARMACY MANAGER CLOSING NOTES PATIENT SITTING AT SIDE OF BED AT THIS TIME WITH 1:1 SITTER AT BEDSIDE. A/O X1 TO NAME ONLY. VERBALLY RESPONSIVE, CONFUSED AND FORGETFUL. EMOTIONAL SUPPORT GIVEN. PT REFUSED TO HAVE HER EXTERNAL DIETARY AIDE COOK ON, NO C/O CARDIAC DISTRESS NOTED. PATIENT FOR DISCHARGE TO GPS UNIT TONIGHT. IV ACCESS ON RIGHT WRIST #22G REMOVED WITH NO ACTIVE BLEEDING AT SITE NOTED, DRY DRESSING APPLIED AT SITE. CALLED ADMITTING DEPT AND INFORMED THAT PT WILL BE TRANSFERRED TO GPS [facility]. SAFETY MEASURES KEPT IN PLACE. WILL ENDORSE PLAN OF CARE TO BENCH WORKER HOLLOW HANDLE NURSE.
[2021-02-02] MEDS ORDERED: MIRTAZAPINE 15 MG TABLET PO SCH (22:00)
[2021-02-03] MEDS ORDERED: PANT40TA2 PO (07:10)
[2021-02-03] MEDS ORDERED: LACT-246 PO (07:10)
[2021-02-03] MEDS ORDERED: ACET-868 PO (07:10)
[2021-02-03] MEDS ORDERED: ALLA266C2 TP (07:10)
[2021-02-03] MEDS ORDERED: ENSURE ENLIVE 237 ML LIQUID (VANILLA) PO SCH (11:00)
== END 2021-02-02 19:25 | DRG 73 ==
LOC: TELE 22:36
PROVIDERS: ADMIT Nurse Practitioner Acute Care; ATTEND Nurse Practitioner Acute Care
DX: G90.8 Other disorders of autonomic nervous system (principal); G93.41 Metabolic encephalopathy; N17.9 Acute kidney failure, unspecified; F03.91 Unspecified dementia, unspecified severity, with behavioral disturbance; N39.0 Urinary tract infection, site not specified; Z73.6 Limitation of activities due to disability; D64.9 Anemia, unspecified; F29 Unspecified psychosis not due to a substance or known physiological condition; R53.1 Weakness; R27.8 Other lack of coordination; E03.9 Hypothyroidism, unspecified; F41.9 Anxiety disorder, unspecified; I25.10 Atherosclerotic heart disease of native coronary artery without angina pectoris; Z79.82 Long term (current) use of aspirin; Z79.899 Other long term (current) drug therapy; F25.1 Schizoaffective disorder, depressive type; K21.9 Gastro-esophageal reflux disease without esophagitis; Z91.81 History of falling
CPT/HCPCS: 36415; 71045-TC; 80053-TC; 80061-TC; 82728-TC; 83540-TC; 83605-TC; 83735-TC; 83880; 84100-TC; 84439-TC; 84443-TC; 84484-TC; 85025-TC; 87081-TC; G0378; J3490

== ENCOUNTER 2021-02-02 19:37 | Inpatient (IN) | payer MEDICARE, BC ==
[~2021-02-02] VITALS: Ht 165.1 cm; Wt 50.3 kg
[2021-02-02] MEDS ORDERED: LORAZEPAM 0.5 MG TABLET PO PRN (21:00)
[2021-02-02] MEDS ORDERED: BLOOD SUGAR DIAGNOSTIC 1 EACH STRIP IN ONE (21:00)
[2021-02-02] MEDS ORDERED: MAGNESIUM HYDROXIDE 30 ML UDC PO PRN (21:00)
[2021-02-02] MEDS ORDERED: MAG HYDROX/AL HYDROX/SIMETH 30 ML UDC PO PRN (21:00)
[2021-02-02] MEDS ORDERED: TEMAZEPAM 7.5 MG CAPSULE PO PRN (21:00)
[2021-02-02] MEDS ORDERED: ACETAMINOPHEN 325 MG TABLET PO PRN (21:00)
--- NOTE | 2021-02-02 22:30 | NUR ---
GPS TARPER NOTE: RECEIVED PATIENT FROM TELEMETRY, PATIENT WAS ORIGINALLY FROM GPS ON A 5250 HOLD FOR GRAVELY DISABLED. PATIENT WAS TRANSFERRED FROM GPS TO TELEMETRY ON 02/01/21 D/T AN EPISODE OF SYNCOPE. PATIENT ARRIVED THIS UNIT AT 1930 VIA STRETCHER WITH 2 ESCORTS. UPON FACE TO FACE EVALUATION, PATIENT IS A/O X1, APPEARS DEPRESSED, CONFUSED, DISORGANIZED, DISORIENTED, PARANOID AND PASSIVE. PATIENT IS CURRENTLY LAYING IN BED AWAKE, NO S/S OF DISTRESS, NO C/O OF PAIN. RESPIRATION EVEN AND UNLABORED WITH EQUAL RISE AND FALL OF THE CHEST, ON ROOM AIR. ACCU CHEK DONE, BS 102MG/DL. PATIENT UNABLE TO SIGN ADMISSION PAPERWORK D/T MENTAL STATUS. PATIENT ADVISED OF HER HOLD AND PATIENT RIGHT HANDBOOK GIVEN. PATIENT IS UNDER THE PSYCHIATRIC CARE OF DR SCHWARTZ AND MEDICAL CARE OF [facility]. PATIENT BELONGINGS WERE INVENTORIED AND CHECKED FOR CONTRABAND. PATIENT ADVANCE DIRECTIVES PREFERENCES, IMMUNIZATIONS QUESTIONER NECESSARY PAPERWORK COMPLETED. PATIENT SKIN ASSESSMENT COMPLETED, PICTURES TAKEN AND PLACED IN PATIENT CHART. PATIENT ORIENTED TO STAFF. PATIENT EDUCATED ON THE USE OF CALL GEORGE. PATIENT BED SIDE RAILS UP X2 FOR SAFETY. PATIENT BED IS LOCKED AND IN LOWEST POSITION. ALL PATIENT NEEDS HAVE BEEN MET AT THIS TIME. WILL CONTINUE TO MONITOR Q15 FOR SAFETY, MOOD AND BEHAVIOR.
--- NOTE | 2021-02-02 23:20 | NUR ---
GPS RN NOTE: RESTORIL 7.5MG 1CAP GIVEN PO PRN ORDERED AT 2318. WILL CONTINUE TO MONITOR
--- NOTE | 2021-02-03 06:44 | NUR ---
GPS RN CLOSING NOTES: PATIENT IS CURRENTLY SLEEPING. PATIENT SLEPT 3HRS THIS SHIFT. SKIN ASSESSMENT DONE, PICTURES TAKEN AND PLACED IN PATIENT CHART. PATIENT IS SCHEDULED TO DC TODAY AT 1100. PATIENT TO BE PICKED UP BY SON ROSEMARY LAM. NO S/S OF DISTRESS. RESPIRATION EVEN AND UNLABORED WITH EQUAL RISE AND FALL OF THE CHEST ON ROOM AIR. ALL PATIENT CARE NEEDS HAVE BEEN MET ANTICIPATED. BED IN LOWEST POSITION AND LOCKED, WITH SIDE RAILS UP X2 FOR SAFETY. WILL CONTINUE TO MONITOR FOR SAFETY, MOOD AND BEHAVIOR AND ENDORSE TO AM SHIFT.
[2021-02-03] MEDS ORDERED: ALLA266C2 TP (07:10)
[2021-02-03] MEDS ORDERED: ACET-868 PO (07:10)
[2021-02-03] MEDS ORDERED: LACT-246 PO (07:10)
[2021-02-03] MEDS ORDERED: PANT40TA2 PO (07:10)
[2021-02-03 08:00] VITALS: BP 144/64
[2021-02-03] MEDS ORDERED: ASPIRIN 81 MG TAB.CHEW PO SCH (09:00)
[2021-02-03] MEDS ORDERED: LEVOTHYROXINE SODIUM 50 MCG TABLET PO SCH (09:00)
[2021-02-03] MEDS ORDERED: ENSURE ENLIVE 237 ML LIQUID (VANILLA) PO SCH (09:00)
[2021-02-03] MEDS ORDERED: Z GUARD REMEDY 2 OZ OINT TP PRN (09:00)
--- NOTE | 2021-02-03 09:24 | NUR ---
Point of Contact: SW called the pts son, Alfred Oconnor ([phone]), and left a voicemail inquiring about whether or not he will be arriving to the hospital to pick the pt up. MELVIN will follow up again.
--- NOTE | 2021-02-03 09:30 | NUR ---
RN NOTE: LAB REFUSAL PT REFUSED AM LAB DRAW FOR CBC,BMP, LIPID PANEL AND AIC. LEFT MESSAGE ON THE VOICE MAIL OF DIRECTOR SELMA ZELAYA
--- NOTE | 2021-02-03 12:20 | NUR ---
ONLINE MEDIA DIRECTOR NOTE: PT DISCHARGED HOME IN STABLE CONDITION. VSS, AFEBRILE NO SOB NOTED. PT A+OX1, ABLE TO MAKE BASIC NEEDS KNOWN. PT WILL HAVE HIRED CARE AND HELP FROM SON. PT DOES NOT VERBALIZE SUICIDALITY OR HOMICIDALITY AT TIME OF DISCHARGE. PT COMPLIANT WITH MEDICATION ADMINISTRATION AND PLAN OF CARE AT TIME OF DISCHARGE. PSYCHIATRIC CARE PLANS MED. MEDICAL CARE PLANS DEFERRED FOR CONTINUITY OF CARE. MEDICATIONS RECONCILED WITH DR. SCHWARTZ AND CODEY MONTOYA GIFT OFFICER. PLAN OF CARE EXPLAINED TO SON, ROSEMARY LAM. SON VERBALIZED UNDERSTANDING. RESPONSIBILITY OF CARE FORM SIGNED. PT LEFT THE UNIT AT 12:20 VIA WHEELCHAIR IN STABLE CONDITION.
[2021-02-04] MEDS ORDERED: PANTOPRAZOLE 40 MG TABLET.DR PO SCH (07:30)
== END 2021-02-03 12:20 | disposition home or self-care (01) | DRG 885 ==
LOC: GPS 19:37
PROVIDERS: ADMIT Psychiatry & Neurology Psychosomatic Medicine; ATTEND Nurse Practitioner Family
DX: F25.0 Schizoaffective disorder, bipolar type (principal); F01.50 Vascular dementia, unspecified severity, without behavioral disturbance, psychotic disturbance, mood disturbance, and anxiety; F29 Unspecified psychosis not due to a substance or known physiological condition; E03.9 Hypothyroidism, unspecified; F43.10 Post-traumatic stress disorder, unspecified; I25.10 Atherosclerotic heart disease of native coronary artery without angina pectoris; K21.9 Gastro-esophageal reflux disease without esophagitis
CPT/HCPCS: 82962-TC

== ENCOUNTER 2022-03-18 15:43 | Emergency (ER) | payer MEDICARE, BC ==
[~2022-03-18] VITALS: Ht 165.1 cm; Wt 69.9 kg
[~2022-03-18 15:43] MED LIST changes: +ACET-868 PO; +ALLA266C2 TP; -ARIP2TAB3 PO; -ESCI5TAB PO; +LACT-246 PO; -OMEP20TA20 PO; +PANT40TA2 PO
--- NOTE | 2022-03-18 15:50 | NUR ---
BIBRA[facility]. "TRIPPED&FELL, R SIDED ORBIT BRUISED AND SWELLING BG 128, NOT IN BLOOD THINNER. PLACED ON BED, AAOX3, BREATHING EVEN AND UNLABORED.
--- NOTE | 2022-03-18 16:30 | NUR ---
PATIENT TAKEN TO CT VIA ALLIE
[2022-03-18] MEDS ORDERED: ACETAMINOPHEN ES 500 MG TABLET ONE (16:45)
[2022-03-18] MEDS: ACETAMINOPHEN ES 500 MG TABLET PO ONE (16:50)
--- NOTE | 2022-03-18 16:57 | NUR ---
SON: KEYS: [phone]
--- NOTE | 2022-03-18 18:10 | NUR ---
Patient discharged to home in stable condition. Written and verbal after care instructions given. Patient verbalizes understanding of instruction.
[2022-03-18 18:13] VITALS: BP 145/60
== END 2022-03-18 18:10 | disposition home or self-care (01) ==
LOC: ER 15:46
DX: S00.11XA Contusion of right eyelid and periocular area, initial encounter (principal); I10 Essential (primary) hypertension; F41.9 Anxiety disorder, unspecified; E03.9 Hypothyroidism, unspecified; Z79.899 Other long term (current) drug therapy; W01.0XXA Fall on same level from slipping, tripping and stumbling without subsequent striking against object, initial encounter; Y93.89 Activity, other specified; Y92.89 Other specified places as the place of occurrence of the external cause; Y99.8 Other external cause status
CPT/HCPCS: 70450-TC; 70486-TC; 72125-TC